=== PATIENT | female | born 1990 ===

== ENCOUNTER 2023-03-20 15:30 | Inpatient (IN) | payer OTHER ==
[~2023-03-20] VITALS: Ht 165.1 cm; Wt 70.3 kg
[2023-04-01] MEDS ORDERED: PRENATAL TABLE1 EAC1 PO (09:25)
[2023-04-01] MEDS ORDERED: DIALYVITE 800-1 EACH PO (09:25)
== END 2023-04-04 14:27 | disposition home or self-care (01) | DRG 788 ==
LOC: OB/GYN 03-29 15:30 → LDR 04-01 09:19 → OB/GYN 04-01 17:55
PROVIDERS: Obstetrics & Gynecology; ADMIT Obstetrics & Gynecology Gynecology; ATTEND Obstetrics & Gynecology Gynecology
PROC: 4A1HXCZ Monitoring of Products of Conception, Cardiac Rate, External Approach (ICD-10-PCS; 2023-04-01)
PROC: 10D00Z1 Extraction of Products of Conception, Low, Open Approach (ICD-10-PCS; principal; 2023-04-01 15:00)
DX: O36.63X0 Maternal care for excessive fetal growth, third trimester, not applicable or unspecified (principal); Z3A.40 40 weeks gestation of pregnancy; Z37.0 Single live birth; Z20.822 Contact with and (suspected) exposure to COVID-19

== ENCOUNTER 2023-03-28 17:49 | Outpatient (CLI) | payer OTHER | END 2023-03-28 18:57 | disposition home or self-care (01) | LOC: NST 17:49 | PROVIDERS: ATTEND Obstetrics & Gynecology Maternal & Fetal Medicine | DX: Z34.83 Encounter for supervision of other normal pregnancy, third trimester (principal) ==

== ENCOUNTER 2023-03-31 07:14 | Outpatient (CLI) | payer OTHER | END 2023-03-31 08:00 | disposition home or self-care (01) | LOC: NST 07:14 | PROVIDERS: ATTEND Obstetrics & Gynecology Maternal & Fetal Medicine | DX: Z34.83 Encounter for supervision of other normal pregnancy, third trimester (principal) ==